=== PATIENT | male | born 1995 | race Two or more races ===

== ENCOUNTER 2019-02-27 17:18 | Emergency (ER) | payer MEDICAID ==
[~2019-02-27] VITALS: Ht 193 cm; Wt 74.1 kg
[2019-02-27 17:20] VITALS: BP 140/86
[2019-02-27] MEDS ORDERED: IBUPROFEN 200 MG TABLET ONE (17:41)
--- NOTE | 2019-02-27 17:42 | NUR ---
PT TO ROOM 5 W/ C/O R ANKLE PAIN. 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 PT NOW HAS C/O SHARP PAIN TO R ANKLE. PT RESTING ON SIMONRJESUS. DINORAH. MEDICATED PER APR.
[2019-02-27] MEDS ORDERED: IBUPROFEN 600 MG TABLET PO ONE (18:00)
== END 2019-02-27 18:28 | disposition home or self-care (01) ==
LOC: ED 18:05
DX: S93.491A Sprain of other ligament of right ankle, initial encounter (principal); W19.XXXA Unspecified fall, initial encounter; Y93.89 Activity, other specified; Y92.89 Other specified places as the place of occurrence of the external cause; Y99.8 Other external cause status
CPT/HCPCS: 99283